=== PATIENT | male | born 1945 | race Caucasian/White ===

== ENCOUNTER 2023-06-27 14:07 | Inpatient (IN) | payer MEDICARE ==
[~2023-06-27] VITALS: Ht 167.6 cm; Wt 69.4 kg
[2023-06-27 14:18] VITALS: BP 143/57
[2023-06-27 15:11] LABS: HEMATOCRIT 35.1 % (42.0-52.0); MEAN CELL VOLUME 88.9 fl (80.0-94.0); MEAN CORPUSCULAR HGB 29.6 pg (27.0-31.0); MEAN CORPUSCULAR HGB CONC 33.3 g/dl (33.0-37.0); MEAN PLATELET VOLUME 10.6 fl (9.6-12.3); PLATELET COUNT AUTOMATED 252 10*3/uL (130-400); RED BLOOD COUNT 3.95 10*6/uL (4.50-5.90); RED CELL DISTRI WIDTH 13.7 % (0-14.5); WHITE BLOOD COUNT 15.1 10*3/uL (4.8-10.8)
[2023-06-27 15:12] LABS: MANUAL DIFF REFLEX YES
[2023-06-27 15:30] LABS: TOTAL CELLS COUNTED 100 #CELLS
[2023-06-27 15:31] LABS: PLATELET SUFFICIENCY NORMAL (NORMAL)
[2023-06-27 15:33] LABS: ALKALINE PHOSPHATASE 101 U/L (46-116); BUN 30 mg/dl (9-23); CHLORIDE 101 mmol/L (98-107); LIPASE 28 U/L (12-53); POTASSIUM 3.1 mmol/L (3.4-5.1); SGPT/ALT 20 U/L (10-49); TOTAL PROTEIN 6.9 gm/dL (6.0-8.0)
[2023-06-27 15:59] LABS: BILIRUBIN Negative (Negative); BLOOD 3+ (Negative); CLARITY Turbid (Clear); COLOR Yellow (Yellow); GLUCOSE Negative (Negative); KETONE Negative (Negative); LEUKO ESTERASE 3+ (Negative); NITRITE Negative (Negative); PH 5.5 (4.5-8.0); SPECIFIC GRAVITY 1.015 (1.001-1.030)
[2023-06-27 16:23] LABS: BACTERIA 3+; RBC TNTC rbc/hpf (0-2); WBC TNTC wbc/hpf (0-5)
[2023-06-27] MEDS ORDERED: PRALUENT P75 MG/1 ML SQ (17:34)
[2023-06-27] MEDS ORDERED: AMLODIPINE BESYL5 MG PO (17:34)
[2023-06-27] MEDS ORDERED: METOPROLOL SUCC50 M1 PO (17:34)
[2023-06-27] MEDS ORDERED: LOSARTAN POTAS100 M1 PO (17:35)
[2023-06-27] MEDS ORDERED: ASPIRIN ADULT L81 M1 PO (17:36)
[2023-06-27 19:28] VITALS: BP 153/68
[2023-06-27 22:10] VITALS: BP 158/65
[2023-06-27 22:54] VITALS: BP 204/84
[2023-06-28 00:25] VITALS: BP 140/66
[2023-06-28 05:51] LABS: ALKALINE PHOSPHATASE 107 U/L (46-116); BUN 24 mg/dl (9-23); CHLORIDE 104 mmol/L (98-107); CHOLESTEROL 78 mg/dL (<200); POTASSIUM 3.4 mmol/L (3.4-5.1); SGPT/ALT 20 U/L (10-49); TOTAL PROTEIN 6.2 gm/dL (6.0-8.0); TRIGLYCERIDES 154 mg/dl (<150); VITAMIN D, 25-HYDROXY 34.7 ng/mL (30-100)
[2023-06-28 05:57] LABS: LDL CHOLESTEROL 34 mg/dL (9-159)
[2023-06-28 06:27] LABS: ACT PARTIAL THROMBO TIME 33.3 SECONDS (20.0-32.1); INTERNATIONAL NORM RATIO 1.1 (2.0-3.5)
[2023-06-28 06:40] LABS: HEMATOCRIT 33.6 % (42.0-52.0); MEAN CORPUSCULAR HGB CONC 33.3 g/dl (33.0-37.0); MEAN PLATELET VOLUME 11.2 fl (9.6-12.3); PLATELET COUNT AUTOMATED 244 10*3/uL (130-400); RED BLOOD COUNT 3.73 10*6/uL (4.50-5.90); RED CELL DISTRI WIDTH 14.2 % (0-14.5); WHITE BLOOD COUNT 15.2 10*3/uL (4.8-10.8)
[2023-06-28 06:43] LABS: MANUAL DIFF REFLEX YES; MEAN CELL VOLUME 90.1 fl (80.0-94.0)
[2023-06-28 07:14] LABS: BASOPHILS 1 % (0-1); PLATELET SUFFICIENCY NORMAL (NORMAL); TOTAL CELLS COUNTED 100 #CELLS
[2023-06-28 08:00] VITALS: BP 135/59
[2023-06-28 12:00] VITALS: BP 138/70
[2023-06-28 16:00] VITALS: BP 153/67
[2023-06-28 20:00] VITALS: BP 149/67
[2023-06-29] VITALS: BP 140/64
[2023-06-29 06:35] LABS: HEMATOCRIT 34.4 % (42.0-52.0); MEAN CELL VOLUME 88.7 fl (80.0-94.0); MEAN CORPUSCULAR HGB 29.6 pg (27.0-31.0); MEAN CORPUSCULAR HGB CONC 33.4 g/dl (33.0-37.0); MEAN PLATELET VOLUME 10.2 fl (9.6-12.3); PLATELET COUNT AUTOMATED 293 10*3/uL (130-400); RED BLOOD COUNT 3.88 10*6/uL (4.50-5.90); RED CELL DISTRI WIDTH 14.3 % (0-14.5); WHITE BLOOD COUNT 12.2 10*3/uL (4.8-10.8)
[2023-06-29 06:48] LABS: MANUAL DIFF REFLEX YES
[2023-06-29 06:52] LABS: BUN 19 mg/dl (9-23); CHLORIDE 105 mmol/L (98-107); POTASSIUM 3.1 mmol/L (3.4-5.1)
[2023-06-29 07:04] LABS: BURR CELLS FEW; OVALOCYTES FEW; PLATELET SUFFICIENCY NORMAL (NORMAL); POLYCHROMASIA SLIGHT; TOTAL CELLS COUNTED 100 #CELLS; TOXIC GRANULATION SLIGHT
[2023-06-29 08:00] VITALS: BP 151/65
[2023-06-29 09:56] LABS: BILIRUBIN Negative (Negative); BLOOD 2+ (Negative); CLARITY Clear (Clear); COLOR Yellow (Yellow); GLUCOSE Negative (Negative); KETONE Negative (Negative); LEUKO ESTERASE 2+ (Negative); NITRITE Negative (Negative); SPECIFIC GRAVITY 1.015 (1.001-1.030)
[2023-06-29 10:05] LABS: BACTERIA 1+; WBC TNTC wbc/hpf (0-5)
[2023-06-29 10:06] LABS: FINE GRANULAR CAST 0-2; RBC 16-20 rbc/hpf (0-2)
[2023-06-29] MEDS ORDERED: OMNICEF300 MG PO (11:14)
[2023-06-29 12:00] VITALS: BP 153/67
== END 2023-06-29 14:09 | disposition home or self-care (01) | DRG 872 ==
LOC: ED 14:07 → 4E 17:30 → EDHOLD 17:30 → 4E 20:27
PROVIDERS: Internal Medicine; Physician Assistant Medical; Registered Nurse; Student in an Organized Health Care Education/Training Program; ADMIT Internal Medicine; ATTEND Internal Medicine
DX: A41.9 Sepsis, unspecified organism (principal); N12 Tubulo-interstitial nephritis, not specified as acute or chronic; E44.0 Moderate protein-calorie malnutrition; E87.1 Hypo-osmolality and hyponatremia; D64.9 Anemia, unspecified; I10 Essential (primary) hypertension; Z96.642 Presence of left artificial hip joint; D72.829 Elevated white blood cell count, unspecified; R31.9 Hematuria, unspecified; E87.6 Hypokalemia; R73.9 Hyperglycemia, unspecified; B96.1 Klebsiella pneumoniae [K. pneumoniae] as the cause of diseases classified elsewhere; B95.4 Other streptococcus as the cause of diseases classified elsewhere; Z95.1 Presence of aortocoronary bypass graft; Z85.46 Personal history of malignant neoplasm of prostate; Z88.8 Allergy status to other drugs, medicaments and biological substances; Z68.24 Body mass index [BMI] 24.0-24.9, adult